=== PATIENT | male | born 1965 | race Caucasian/White ===

== ENCOUNTER 2020-11-02 09:57 | Emergency (ER) | payer OTHER ==
[2020-11-02 11:00] LABS: HEMOGLOBIN 16.6 gm/dl (14.0-17.5); RED BLOOD COUNT 5.36 M/UL (4.20-5.50); WHITE BLOOD COUNT 4.5 K/UL (4.5-11.0)
[2020-11-02 11:38] LABS: BUN/CREATININE RATIO 16 (0-10)
[2020-11-02] MEDS ORDERED: OMNICEF 300 MG300 MG PO (13:55)
[2020-11-02] MEDS ORDERED: ZOFRAN ODT 4 MG4 MG PO (13:55)
== END 2020-11-02 16:23 | disposition home or self-care (01) ==
LOC: ER1 09:57
PROVIDERS: Emergency Medicine
DX: U07.1 COVID-19 (principal); N39.0 Urinary tract infection, site not specified; E11.9 Type 2 diabetes mellitus without complications; E78.5 Hyperlipidemia, unspecified; I10 Essential (primary) hypertension
CPT/HCPCS: 71045; 80053; 81001; 82550; 82553; 83690; 83735; 83874; 84484; 85025; 87077; 87086; 87186; 93005; 96365; 96367; 96375; 99284; J0696; J2405; J7120; M0239

== ENCOUNTER 2021-11-04 06:23 | Emergency (ER) | payer OTHER ==
[~2021-11-04 06:23] MED LIST: OMNICEF 300 MG300 MG PO; ZOFRAN ODT 4 MG4 MG PO
[2021-11-04 07:31] LABS: HEMOGLOBIN 15.6 gm/dl (14.0-17.5); RED BLOOD COUNT 5.11 M/UL (4.20-5.50); WHITE BLOOD COUNT 8.1 K/UL (4.5-11.0)
[2021-11-04 07:53] LABS: BUN/CREATININE RATIO 12 (0-10)
[2021-11-04] MEDS ORDERED: IBU600 MG PO (09:16)
== END 2021-11-04 10:35 | disposition home or self-care (01) ==
LOC: ER1 06:23
PROVIDERS: Student in an Organized Health Care Education/Training Program
DX: U07.1 COVID-19 (principal); I11.9 Hypertensive heart disease without heart failure; Z79.4 Long term (current) use of insulin; E11.9 Type 2 diabetes mellitus without complications
CPT/HCPCS: 71045; 80048; 82550; 82553; 84484; 85025; 93005; 96372; 99285; J1885